=== PATIENT | female | born 1965 | race Caucasian/White ===

== ENCOUNTER 2023-01-19 08:32 | Outpatient (AMB) | payer OTHER, SELFPAY ==
--- NOTE | 2023-01-19 09:08 | MHC.OFFWIV ---
Intake Vital Signs 01/19/23 09:10 Weight 210 lb BP 118/72 Blood Pressure Location Rt brachial Position Sitting Pulse 60 Pulse Source Pulse Oximeter Pulse Oximetry (%) 97 Oxygen Delivery Method Room Air Intake Visit Reasons: EP, Left upper arm rash Intake Note: Patient here for left upper arm rash that happened on the bus, pt states she believes she was bit by something. Patient Tobacco Use Status: Former Tobacco user Allergies amoxicillin Allergy (Unknown, Verified 01/19/23 10:02) Unknown ciprofloxacin [Cipro] Allergy (Unknown, Verified 01/19/23 10:02) Unknown penicillin V Allergy (Unknown, Verified 01/19/23 10:02) Unknown shellfish Allergy (Unknown, Uncoded 01/19/23 10:02) Unknown Medication List - Last Reconciled 01/19/23 by Rene Green MD amlodipine 0 mg PO atenolol 25 mg PO DAILY cetirizine 10 mg PO DAILY cholecalciferol (vitamin D3) (Vitamin D3) 50 mcg PO DAILY fluticasone propion-salmeterol 500-50 mcg/dose (Advair Diskus) 1 ea inhalation Q12H Do you need a note to return to daycare/school/sports/work: No HPI EP, Left upper arm rash HPI Details 57-year-old female presents to the office for a sick visit. Patient believes that while traveling in a bus a few days ago, she was bit by insects. She immediately noticed and was feeling very uncomfortable. She has now noticed a rash in the left axilla in the area where she was bitten. PFSH Social History Patient Tobacco Use Status: Former Tobacco user Physical Exam Vital Signs: Last Vital Signs Pulse 60 01/19/23 09:10 BP 118/72 01/19/23 09:10 Pulse Ox 97 01/19/23 09:10 Oxygen Delivery Method Room Air 01/19/23 09:10 Skin Other: Large erythematous area in the left axilla within duration in the center. Minimal discomfort. No vesicles or pustules seen. Assessment & Plan Assessment & Plan (1) Rash: Code(s): R21 - Rash and other nonspecific skin eruption Plan: Rashe is mostly reactive to the tick bite. Reassurance. If symptoms not better to follow-up here. Coding Level of Care Code Est Pt Level 3 (28442) Diagnoses Rash R21
[2023-01-19 09:10] VITALS: BP 118/72; PULSE 60; O2SAT 97
== END 2023-01-19 10:51 | disposition home or self-care (01) ==
PROVIDERS: Visit Provider Internal Medicine
DX: R21 Rash and other nonspecific skin eruption (principal)
CPT/HCPCS: 99213